=== PATIENT | male | born 1955 | race Hispanic/Latino ===

== ENCOUNTER 2017-12-01 16:15 | Emergency (ER) | payer OTHER ==
[2017-12-01 16:23] VITALS: BMI 29.1
[2017-12-01 16:24] VITALS: BP 121/77; PULSE 110; RESP 18; TEMP 98.5; O2SAT 98
[2017-12-01] MEDS ORDERED: Multivitamin (MVI) 10 ML, Thiamine 100 MG, Folic Acid 1 MG in Dextrose 5% In Water 1,00... IV ONE (16:33)
--- NOTE | 2017-12-01 17:13 | ED PDOC ---
Arrival/HPI <Cherelle Kelly - Last Filed: 12/01/17 17:23> - General Historian: Patient, EMS EM Caveat: Intoxicated - History of Present Illness Time/Duration: Prior to Arrival <Lara Martinez PA-C - Last Filed: 12/01/17 19:45> - General Chief Complaint: Altered Mental Status Time Seen by Provider: 12/01/17 16:29 - History of Present Illness Narrative History of Present Illness (Text): 12/01/17 17:10 Patient is a 60 year old male who was brought to the emergency department by EMS for EtOH intoxication. He admits to drinking today and keeps verbalizing that he's fine. Patient denies any nausea, vomiting, trauma, or injury. Limited HPI and ROS as patient is intoxicated. (Lara Martinez PA-C) Past Medical History - Infectious Disease Hx of Infectious Diseases: None - Psychiatric Hx Substance Use: No <Cherelle Kelly - Last Filed: 12/01/17 17:23> - Provider Review Nursing Documentation Reviewed: Yes <Lara Martinez PA-C - Last Filed: 12/01/17 19:45> Family/Social History Family/Social History: Unknown Family HX Smoking Status: Unknown If Ever Smoked Hx Alcohol Use: Yes (Alcohol to the breath) Hx Substance Use: No <Cherelle Kelly - Last Filed: 12/01/17 17:23> - Physician Review Nursing Documentation Reviewed: Yes Family/Social History: Unknown Family HX <Lara Martinez PA-C - Last Filed: 12/01/17 19:45> Allergies/Home Meds <Cherelle Kelly - Last Filed: 12/01/17 17:23> <Lara Martinez PA-C - Last Filed: 12/01/17 19:45> Allergies/Adverse Reactions: Allergies Unobtainable Allergy (Verified 12/01/17 16:23) Home Medications: Home Meds Medication Instructions Recorded Confirmed Unobtainable 12/01/17 12/01/17 Review of Systems - Review of Systems Systems not reviewed;Unavailable: Intoxicated Constitutional: Other (Denies any trauma or injury.) Gastrointestinal: absent: Nausea, Vomiting Neurological: absent: Headache <Lara Martinez PA-C - Last Filed: 12/01/17 19:45> Physical Exam - Physical Exam Physical Exam Limitations: Intoxication - Systems Exam Lower Extremity: Present: Normal Inspection. No: Edema <Cherelle Kelly - Last Filed: 12/01/17 17:23> - Physical Exam Physical Exam Limitations: Intoxication Vital Signs Reviewed: Yes Temperature: Afebrile Blood Pressure: Normal Pulse: Tachycardic Respiratory Rate: Normal Appearance: Positive for: Well-Appearing, Non-Toxic, Comfortable Pain Distress: None Mental Status: Positive for: Alert and Oriented X 3 - Systems Exam Head: Present: Normocephalic, Abrasion (Healing abrasion to right side of head.) . No: Tenderness, Contusion, Swelling, Ecchymosis Pupils: Present: PERRL Extroacular Muscles: Present: EOMI Conjunctiva: Present: Normal Mouth: Present: Dry Neck: Present: Normal Range of Motion. No: MIDLINE TENDERNESS, Paraspinal Tenderness Respiratory/Chest: Present: Clear to Auscultation, Good Air Exchange, Other ( Breath smells of EtOH.). No: Respiratory Distress, Accessory Muscle Use, Tender to Palpation Cardiovascular: Present: Regular Rate and Rhythm, Normal S1, S2. No: Murmurs Abdomen: No: Tenderness, Distention, Peritoneal Signs Back: Present: Normal Inspection. No: Midline Tenderness, Paraspinal Tenderness Upper Extremity: Present: Normal Inspection. No: Cyanosis, Edema Lower Extremity: Present: Normal Inspection. No: Edema Neurological: Present: GCS=15, CN II-XII Intact, Speech Normal Skin: Present: Warm, Dry, Normal Color. No: Rashes Psychiatric: Present: Alert, Oriented x 3 <Lara Martinez PA-C - Last Filed: 12/01/17 19:45> Vital Signs Temp Pulse Resp BP Pulse Ox 12/01/17 16:23 98.5 F 110 H 18 121/77 98 Medical Decision Making <Cherelle Kelly - Last Filed: 12/01/17 17:23> <Lara Martinez PA-C - Last Filed: 12/01/17 19:45> ED Course and Treatment: 12/01/17 17:15 Impression: Patient is a 60 year old male who was brought to the Emergency department by EMS for EtOH intoxication. Differential Diagnosis included but are not limited to: Plan: --Head CT without contrast --Labs --Blood work --IV fluids. -- Reassess and disposition Progress Notes: 12/01/17 18:00 FS 260 Alcohol level 293 On reevaluation, patient is awake and alert, is still unsteady on his feet, states that he wants to go to the bathroom. Patient given a urinal. Patient went and returned from CT, he is sleeping comfortably in bed, breathing easy and unlabored. CT head : FINDINGS: HEMORRHAGE: No intracranial hemorrhage. BRAIN: Roque-white matter differentiation is preserved. There is no mass, mass effect or abnormal extra-axial fluid collection. There is no territorial infarction. The midline sagittal structures are normal. VENTRICLES: The ventricles are normal in size, shape and configuration. CALVARIUM: There is no calvarial fracture or extracranial soft tissue swelling. PARANASAL SINUSES: Predominantly clear. MASTOID AIR CELLS: Predominantly clear. OTHER FINDINGS: None. IMPRESSION: No acute intracranial abnormality. 12/01/17 19:40 PA notified by RN that the patient eloped, an IV was not inserted and he did not receive any IVF when he left. RN notified electrical discharge machine operator and nurse manager creative. (Juan ALLEN,Lara Yepez) - Lab Interpretations Lab Results: 12/01/17 18:15 12/01/17 18:15 Lab Results 12/01/17 18:15: Alcohol, Quantitative 293 H 12/01/17 18:15: Sodium 141, Potassium 3.8, Chloride 100, Carbon Dioxide 24, Anion Gap 21 H, BUN 8, Creatinine 0.8, Est GFR ( Amer) > 60, Est GFR (Non -Af Amer) > 60, Random Glucose 273 H, Calcium 9.1, Total Bilirubin 0.4, AST 23, ALT 14, Alkaline Phosphatase 86, Total Protein 7.2, Albumin 4.4, Globulin 2.8, Albumin/Globulin Ratio 1.6 12/01/17 18:15: WBC 12.7 H, RBC 4.90, Hgb 16.1, Hct 44.1, MCV 90.0, MCH 32.9, MCHC 36.5, RDW 12.6, Plt Count 254, MPV 10.2, Gran % 70.0 H, Lymph % (Auto) 22.8 , Scott % (Auto) 6.3 H, Eos % (Auto) 0.6 L, Baso % (Auto) 0.3, Gran # 8.89 H, Lymph # (Auto) 2.9, Scott # (Auto) 0.8 H, Eos # (Auto) 0.1, Baso # (Auto) 0.04 12/01/17 16:21: POC Glucose (mg/dL) 260 H - RAD Interpretation Radiology Orders: 12/01/17 16:32 HEAD W/O CONTRAST [CT] Stat - Medication Orders Current Medication Orders: Multivitamins/Vitamin C 10 ml/Thiamine HCl 100 mg/ Folic Acid 1 mg/ Dextrose 1, 011.2 mls @ 250 mls/hr IV .Q4H3M ONE Stop: 12/01/17 20:35 <Cherelle Kelly - Last Filed: 12/01/17 17:23> - PA / BREAKER UNIT ASSEMBLER / Resident Statement MD/DO has reviewed & agrees with the documentation as recorded. - Scribe Statement The provider has reviewed the documentation as recorded by the Scribe <Lara Martinez PA-C - Last Filed: 12/01/17 19:45> - Scribe Statement Paulino Huongdaniel Provider Scribe Attestation: All medical record entries made by the Scribe were at my direction and personally dictated by me. I have reviewed the chart and agree that the record accurately reflects my personal performance of the history, physical exam, medical decision making, and the department course for this patient. I have also personally directed, reviewed, and agree with the discharge instructions and disposition. (Lara Martinez PA-C) Disposition/Present on Arrival - Present on Arrival History of DVT/PE: No History of Uncontrolled Diabetes: No Urinary Catheter: No History of Decub. Ulcer: No History Surgical Site Infection Following: None <Cherelle Kelly - Last Filed: 12/01/17 17:23> - Present on Arrival Any Indicators Present on Arrival: No History of DVT/PE: No History of Uncontrolled Diabetes: No Urinary Catheter: No History of Decub. Ulcer: No - Disposition Have Diagnosis and Disposition been Completed?: Yes Disposition Time: 19:45 <Lara Martinez PA-C - Last Filed: 12/01/17 19:45> - Disposition Diagnosis: Alcohol intoxication Disposition: ELOPEMENT - ER ONLY Condition: UNKNOWN Forms: [facility] (Macedonian)
[2017-12-01 18:45] LABS: BASO # 0.04 K/mm3 (0.0-2.0); BASO % 0.3 % (0.0-3.0); EOS # 0.1 (0.0-0.7); EOS % 0.6 % (1.5-5.0); GRAN # 8.89 (1.4-6.5); HEMOGLOBIN 16.1 g/dL (14.0-18.0); LYMPH # 2.9 (1.2-3.4); LYMPH % 22.8 % (22.0-35.0); MEAN CORPUSCULAR HEMOGLOBIN 32.9 pg (25.0-35.0); MEAN CORPUSCULAR HGB CONC 36.5 g/dl (31.0-37.0); MEAN PLATELET VOLUME 10.2 fl (7.0-11.0); MONO # 0.8 (0.1-0.6); MONO % 6.3 % (1.0-6.0); RBC 4.9 10^6/uL (3.5-6.1); RED CELL DISTRIBUTION WIDTH 12.6 % (11.5-14.5); WHITE BLOOD COUNT 12.7 10^3/ul (4.5-11.0)
--- NOTE | 2017-12-01 18:49 | CT ---
Date of service: 12/01/2017 PROCEDURE: CT HEAD WITHOUT CONTRAST. HISTORY: etoh, abrasion to forehead, ? fall COMPARISON: None available. TECHNIQUE: Axial computed tomography images were obtained through the head/brain without intravenous contrast. Radiation dose: Total exam DLP = 947.79 mGy-cm. This CT exam was performed using one or more of the following dose reduction techniques: Automated exposure control, adjustment of the mA and/or kV according to patient size, and/or use of iterative reconstruction technique. FINDINGS: HEMORRHAGE: No intracranial hemorrhage. BRAIN: Roque-white matter differentiation is preserved. There is no mass, mass effect or abnormal extra-axial fluid collection. There is no territorial infarction. The midline sagittal structures are normal. VENTRICLES: The ventricles are normal in size, shape and configuration. CALVARIUM: There is no calvarial fracture or extracranial soft tissue swelling. PARANASAL SINUSES: Predominantly clear. MASTOID AIR CELLS: Predominantly clear. OTHER FINDINGS: None. IMPRESSION: No acute intracranial abnormality.
[2017-12-01 18:58] LABS: ALB/GLOB RATIO 1.6 (1.1-1.8); ALBUMIN 4.4 g/dL (3.0-4.8); ALT/SGPT 14 U/L (7-56); AST/SGOT 23 U/L (17-59); BLOOD UREA NITROGEN 8 mg/dL (7-21); CALCIUM 9.1 mg/dL (8.4-10.5); GFR AFRICAN-AMERICAN > 60; GFR NON-AFRICAN AMERICAN > 60
== END 2017-12-01 19:10 | disposition left against medical advice (07) ==
LOC: EDBD 16:15 → ED 16:15 → MERGE 16:15 → ED 19:10
DX: F10.129 Alcohol abuse with intoxication, unspecified (principal)

== ENCOUNTER 2017-12-01 23:41 | Emergency (ER) | payer OTHER ==
[2017-12-01 23:42] VITALS: BMI 28.3
--- NOTE | 2017-12-01 23:56 | ED PDOC ---
Arrival/HPI - General Historian: Patient EM Caveat: Intoxicated <Gibson Schrader - Last Filed: 12/02/17 06:19> <Godwin Corbett - Last Filed: 12/02/17 06:32> - General Chief Complaint: Alcohol Ingestion Time Seen by Provider: 12/01/17 23:45 - History of Present Illness Narrative History of Present Illness (Text): Patient is a 62 year old male that was seen in the emergency department earlier this evening for alcohol intoxication. Patient eloped after initial work up. He was found by EMS intoxicated and passed out on the steps of the local [employer]. Patient admits to drinking alcohol and repeatedly states he is fine. When asked where he went after he eloped earlier, he laughed and stated, "I went to go drink some more, what did you think?" He has no complaints. (Gibson Schrader) Past Medical History - Provider Review Nursing Documentation Reviewed: Yes - Infectious Disease Hx of Infectious Diseases: None - Psychiatric Hx Substance Use: No <Gibson Schrader - Last Filed: 12/02/17 06:19> Family/Social History - Physician Review Nursing Documentation Reviewed: Yes Family/Social History: Unknown Family HX Smoking Status: Unknown If Ever Smoked Hx Alcohol Use: Yes (Alcohol to the breath) Hx Substance Use: No <Gibson Schrader - Last Filed: 12/02/17 06:19> Allergies/Home Meds <Gibson Schrader - Last Filed: 12/02/17 06:19> <Godwin Corbett - Last Filed: 12/02/17 06:32> Allergies/Adverse Reactions: Allergies Unobtainable Allergy (Verified 12/01/17 23:42) Home Medications: Home Meds Medication Instructions Recorded Confirmed Unobtainable 12/01/17 12/01/17 Review of Systems - Physician Review All systems were reviewed & negative as marked: Yes - Review of Systems Systems not reviewed;Unavailable: Intoxicated <Gibson Schrader - Last Filed: 12/02/17 06:19> Physical Exam Vital Signs Reviewed: Yes Temperature: Afebrile Blood Pressure: Normal Pulse: Tachycardic Respiratory Rate: Normal Appearance: Positive for: Well-Appearing, Non-Toxic, Comfortable, Other ( Intoxicated) Pain Distress: None Mental Status: Positive for: Alert and Oriented X 3, other (intoxicated) - Systems Exam Head: Present: Abrasion (on forehead, seen on exam earlier in evening), Other ( face flushed) Pupils: Present: PERRL Extroacular Muscles: Present: EOMI Conjunctiva: Present: Normal Mouth: Present: Moist Mucous Membranes Nose (External): Present: Atraumatic Nose (Internal): Present: Normal Inspection, No Active Bleeding Neck: No: MIDLINE TENDERNESS, JVD, Lymphadenopathy Respiratory/Chest: Present: Clear to Auscultation, Good Air Exchange. No: Respiratory Distress, Accessory Muscle Use Cardiovascular: Present: Normal S1, S2, Tachycardic. No: Murmurs Abdomen: No: Tenderness, Distention, Peritoneal Signs Upper Extremity: Present: Normal Inspection, NORMAL PULSES. No: Cyanosis, Edema Lower Extremity: Present: Normal Inspection, NORMAL PULSES. No: Edema Skin: Present: Warm, Dry. No: Rashes Psychiatric: Present: Alert, Oriented x 3, Normal Insight, Normal Concentration , Intoxicated <Gibson Schrader - Last Filed: 12/02/17 06:19> Vital Signs Temp Pulse Resp BP Pulse Ox 12/01/17 23:55 97.8 F 108 H 18 121/87 96 Medical Decision Making <[place] Schrader - Last Filed: 12/02/17 06:19> <Godwin Corbett - Last Filed: 12/02/17 06:32> ED Course and Treatment: 12/01/17 23:59 Patient seen in emergency room earlier this evening. Patient eloped at that time. Patient still intoxicated. No changes on exam. No labs indicated at this time. Reviewed prior labs and imaging. 12/02/17 04:27 Patient resting comfortably in bed 12/02/17 05:54 Patient sleeping in bed comfortably (Gibson Schrader) Impression: Pt seen and evaluated with pesticide use medical coordinator. Aware and agree with HPI, clinical findings, plan, and management. Pt brought in for public intoxication, was seen earlier today and eloped from the ER. Plan: -- Reassess and disposition Progress Notes: 12/02/17 06:31 Patient awake,alert sober with steady gait in ER. (Godwin Corbett) - PA / CORRESPONDENCE TRANSCRIBER / Resident Statement MD/ has reviewed & agrees with the documentation as recorded. / has examined the patient and agrees with the treatment plan. <Godwin Corbett - Last Filed: 12/02/17 06:32> Disposition/Present on Arrival - Present on Arrival Any Indicators Present on Arrival: No History of DVT/PE: No History of Uncontrolled Diabetes: No Urinary Catheter: No History of Decub. Ulcer: No History Surgical Site Infection Following: None - Disposition Have Diagnosis and Disposition been Completed?: Yes Disposition Time: 06:20 <Gibson Schrader - Last Filed: 12/02/17 06:19> - Present on Arrival Any Indicators Present on Arrival: No - Disposition Have Diagnosis and Disposition been Completed?: Yes Disposition Time: 06:32 Patient Plan: Discharge <Godwin Corbett - Last Filed: 12/02/17 06:32> - Disposition Diagnosis: Acute alcohol intoxication Disposition: HOME/ ROUTINE Patient Problems: Current Active Problems Problem Status Onset Acute alcohol intoxication Acute Condition: GOOD Discharge Instructions (ExitCare): Alcohol Abuse and Alcoholism (DC) Referrals: FAMILY PROVIDER,NO [Primary Care Provider] - Follow up with primary Alcoholics Anonymous [Outside] - Follow up with primary Forms: [facility] (Macedonian)
[2017-12-01 23:58] VITALS: RESP 18; TEMP 97.8
[2017-12-02 06:43] VITALS: BP 166/88; PULSE 98; O2SAT 98
== END 2017-12-02 06:43 | disposition home or self-care (01) ==
LOC: ED 23:41 → MERGE 23:41 → ED 12-02 06:43
DX: F10.129 Alcohol abuse with intoxication, unspecified (principal)